=== PATIENT | male | born 1945 | race Caucasian/White ===

== ENCOUNTER → 2024-12-09 13:55 | Outpatient (REF) | payer MEDICARE, OTHER, SELFPAY | LOC: PAVMRI 13:55 | PROVIDERS: ATTENDING PHYSICIAN Neurological Surgery; FAMILY PHYSICIAN Family Medicine | DX: G35 Multiple sclerosis (principal) | CPT/HCPCS: 70553; A9575 ==

== ENCOUNTER → 2024-12-10 12:09 | Outpatient (REF) | payer MEDICARE, OTHER, SELFPAY | LOC: PAVMRI 12:09 | PROVIDERS: ATTENDING PHYSICIAN Neurological Surgery; FAMILY PHYSICIAN Family Medicine | DX: G35 Multiple sclerosis (principal) | CPT/HCPCS: 72156; 72157; A9575 ==